=== PATIENT | female | born 1990 | race Caucasian/White ===

== ENCOUNTER 2018-09-25 19:42 | Emergency (ER) | payer OTHER ==
[~2018-09-25] VITALS: Ht 157.5 cm; Wt 87.1 kg
[2018-09-25 20:02] VITALS: Ht 157.5 cm; Wt 87.1 kg
[2018-09-25 22:13] VITALS: BP 156/100
== END 2018-09-25 22:13 | disposition home or self-care (01) ==
LOC: ED 19:42
DX: G62.9 Polyneuropathy, unspecified (principal); F41.9 Anxiety disorder, unspecified

== ENCOUNTER 2020-05-12 09:00 | Emergency (ER) | payer OTHER, SELFPAY ==
[~2020-05-12] VITALS: Ht 157.5 cm; Wt 90.7 kg
[2020-05-12 09:05] VITALS: Ht 157.5 cm; Wt 90.7 kg
[2020-05-12 09:45] LABS: BASOPHIL % 0.4 % (0-2); PLATELET COUNT 257 x10^3mcL (130-400)
[2020-05-12 09:48] LABS: RED CELL DISTRIBUTION WIDTH 16.2 % (11.5-14.5)
[2020-05-12 11:08] VITALS: BP 109/64
== END 2020-05-12 11:08 | disposition home or self-care (01) ==
LOC: ED 09:00
PROVIDERS: Emergency Medicine
DX: U07.1 COVID-19 (principal); N93.8 Other specified abnormal uterine and vaginal bleeding
CPT/HCPCS: U0003